=== PATIENT | male | born 1965 | race Caucasian/White ===

== ENCOUNTER 2017-01-28 21:59 | Emergency (ER) | payer OTHER ==
[~2017-01-28] VITALS: Ht 172.7 cm; Wt 139.5 kg
[~2017-01-28 21:59] MED LIST: IBUP800T25 PO
[2017-01-28 22:05] VITALS: Ht 172.7 cm; Wt 139.5 kg
[2017-01-28] MEDS ORDERED: MECL12.574 PO (22:50)
--- NOTE | 2017-01-28 22:56 | ERA ---
ER Documentation Chief Complaint Date/Time DATE: 01/28/17 TIME: 22:51 Chief Complaint dizzy x 2 days HPI This is a otherwise healthy morbidly obese 51-year-old male with a chief complaint of dizziness 1 day. Patient denies fever, history of trauma, change/ loss of hearing, tinnitus, headache, dizziness, chyna-auricular pain, or neck stiffness. Reports no recent illness. Vaccination status is up to date. ROS All systems reviewed and are negative except as per history of present illness. Medications Home Meds Active Scripts Meclizine Hcl* (Antivert*) 12.5 Mg Tab, 12.5 MG PO Q6H Y for DIZZINESS, #20 TAB Prov:MYNOR JOYNER PA-C 01/28/17 Ibuprofen* (Motrin*) 800 Mg Tab, 800 MG PO Q6H Y for PAIN AND OR ELEVATED TEMP, #30 TAB Prov:BAUDILIO ANDERSON. BUNCHER OPERATOR 01/31/15 Allergies Allergies: Coded Allergies: No Known Allergy (Unverified , 01/28/17) PMhx/Soc Medical and Surgical Hx: pt denies Surgical Hx Hx Miscellaneous Medical Probl: Yes (Borderline diabetes) Hx Alcohol Use: Yes (WEEKENDS) Hx Substance Use: No Hx Tobacco Use: No Smoking Status: Never smoker Physical Exam Vitals Vital Signs Date Time Temp Pulse Resp B/P Pulse Ox O2 Delivery O2 Flow Rate FiO2 01/28/17 22:05 97.2 69 20 146/75 98 Physical Exam Const: [] Head: Atraumatic Eyes: Normal Conjunctiva ENT: Normal External Ears, Nose and Mouth. Neck: Full range of motion..~ No meningismus. Resp: Clear to auscultation bilaterally Cardio: Regular rate and rhythm, no murmurs Abd: Soft, non tender, non distended. Normal bowel sounds Skin: No petechiae or rashes Back: No midline or flank tenderness Ext: No cyanosis, or edema Neur: Awake and alert Psych: Normal Mood and Affect Procedures/MDM This patient was evaluated for dizziness 1 day. [place]-Hallpike maneuver resulted in nystagmus to the left side and increased in symptoms. Unsuccessful Vadim maneuver 2. Mild I fatigue that the patient states is chronic. I suggested that the patient follow-up with PCP for further evaluation of chronic disorders. Patient was Arabic-speaking and the flight test supervisor was the nurse. Current signs and symptoms are most consistent with benign paroxysmal vertigo. At this time I very little suspicion for intracranial bleeds, foreign body, meningitis, or other serious bacterial infections, or neurological disorders such as myasthenia gravis or multiple sclerosis. Patient was neurovascularly intact, there were no signs of anemia. Patient denies presyncope episodes. I have spoke with the patient regarding their condition and future management. They have verbally responded that they understand. Patient's vitals are stable and her current condition is appropriate for discharge. Patient will be discharged at this time with discharge instructions return precautions. Discharge medications: Meclizine. Departure Diagnosis: Primary Impression: BPV (benign positional vertigo) Qualified Code: H81.10 - BPV (benign positional vertigo), unspecified laterality Additional Impression: Dizziness Condition: Stable Patient Instructions: Inner Ear Problems: Causes of Dizziness (Vertigo) Additional Instructions: Follow up with your PCP within the next 1-3 days for a more thorough evaluation and a possible referral to a specialist. Return the the emergency department immediately if symptoms worsen or change. If you have any questions regarding medications, ask your pharmacist or us before you leave. If any adverse reactions occur while taking your medications, discontinue the treatment and return to the emergency department immediately. Take your medications as directed, and complete the entire course of treatment. MYNOR JOYNER PA-C Jan 28, 2017 22:56
== END 2017-01-28 23:15 | disposition home or self-care (01) ==
LOC: FTE 21:59
DX: H81.10 Benign paroxysmal vertigo, unspecified ear (principal)
CPT/HCPCS: 99283